=== PATIENT | male | born 2000 | race Caucasian/White ===

== ENCOUNTER 2020-01-14 08:59 | Emergency (ER) | payer OTHER ==
[~2020-01-14] VITALS: Ht 180.3 cm; Wt 70.3 kg
[~2020-01-14 08:59] MED LIST: AMOXICILLIN500 MG PO; MOTRIN400 MG PO; Tobradex 0.3-0.15 ML OPH; VICODIN ES 7501 TAB PO
[2020-01-14] MEDS ORDERED: Tobrex Ophth S2.5 ML OPH (10:24)
== END 2020-01-14 10:32 | disposition home or self-care (01) ==
LOC: ED 08:59
DX: H10.89 Other conjunctivitis (principal)

== ENCOUNTER 2022-10-25 09:22 | Inpatient (IN) | payer OTHER ==
[2022-10-25] VITALS (8 sets, daily range): BP systolic 107–138; BP diastolic 61–96
[~2022-10-25] VITALS: Ht 180.3 cm; Wt 74.8 kg
[~2022-10-25 09:22] MED LIST changes: +Tobrex Ophth S2.5 ML OPH
[2022-10-25 11:05] LABS: BASO # 0.1 10*3/uL (0.0-0.1); BASO % 0.4 % (0.0-1.0); EOS # 0.1 10*3/uL (0.0-0.4); EOS % 0.4 % (1.0-4.0); HEMATOCRIT 44.3 % (42.0-52.0); LYMPH # 1.5 10*3/uL (1.3-4.4); MEAN CELL VOLUME 86.9 fl (80.0-94.0); MEAN CORPUSCULAR HGB 30.8 pg (27.0-31.0); MEAN CORPUSCULAR HGB CONC 35.4 g/dl (33.0-37.0); MEAN PLATELET VOLUME 10.7 fl (9.6-12.3); MONO # 1.1 10*3/uL (0.1-1.0); MONO % 7.9 % (3.0-9.0); NEUT # 10.9 10*3/uL (2.3-7.9); PLATELET COUNT AUTOMATED 267 10*3/uL (130-400); RED CELL DISTRI WIDTH 11.5 % (0-14.5); WHITE BLOOD COUNT 13.6 10*3/uL (4.8-10.8)
[2022-10-25 11:31] LABS: ALKALINE PHOSPHATASE 64 U/L (46-116); BUN 7 mg/dl (9-23); CHLORIDE 107 mmol/L (98-107); LIPASE 31 U/L (12-53); POTASSIUM 4.6 mmol/L (3.4-5.1); SGPT/ALT 12 U/L (10-49); TOTAL PROTEIN 7.6 gm/dL (6.0-8.0)
[2022-10-25] MEDS ORDERED: ASMANEX HFA13 GM INH ×2 (15:13)
[2022-10-26] VITALS: BP 125/77
[2022-10-26 05:35] LABS: BUN 6 mg/dl (9-23); CHLORIDE 105 mmol/L (98-107); POTASSIUM 4.5 mmol/L (3.4-5.1)
[2022-10-26 06:11] LABS: BASO % 0.1 % (0.0-1.0); HEMATOCRIT 42.1 % (42.0-52.0); LYMPH # 0.9 10*3/uL (1.3-4.4); LYMPH % 6.9 % (27.0-41.0); MEAN CELL VOLUME 89.6 fl (80.0-94.0); MEAN CORPUSCULAR HGB 30.9 pg (27.0-31.0); MEAN CORPUSCULAR HGB CONC 34.4 g/dl (33.0-37.0); MEAN PLATELET VOLUME 11.4 fl (9.6-12.3); MONO # 1.2 10*3/uL (0.1-1.0); MONO % 8.8 % (3.0-9.0); NEUT % 83.8 % (47.0-73.0); PLATELET COUNT AUTOMATED 228 10*3/uL (130-400); RED CELL DISTRI WIDTH 11.8 % (0-14.5); WHITE BLOOD COUNT 13.1 10*3/uL (4.8-10.8)
[2022-10-26 08:00] VITALS: BP 134/53
[2022-10-26] MEDS ORDERED: COLACE100 MG PO (11:21)
[2022-10-26] MEDS ORDERED: HYDROCODONE-AC1 EAC1 PO (11:21)
[2022-10-26] MEDS ORDERED: VENT7GM INH (11:23)
[2022-10-26] MEDS ORDERED: ASMANEX HFA13 GM INH (11:25)
[2022-10-26 11:53] VITALS: BP 126/60
== END 2022-10-26 14:00 | disposition home or self-care (01) | DRG 343 ==
LOC: ED 09:22 → 4E 14:33 → EDHOLD 14:33 → 4E 15:30
PROVIDERS: Emergency Medicine; Registered Nurse; ADMIT Internal Medicine; ATTEND Internal Medicine
PROC: 0DTJ4ZZ Resection of Appendix, Percutaneous Endoscopic Approach (ICD-10-PCS; principal; 2022-10-25)
DX: K35.80 Unspecified acute appendicitis (principal); J45.909 Unspecified asthma, uncomplicated; F17.210 Nicotine dependence, cigarettes, uncomplicated